=== PATIENT | male | born 1985 | race African-American/Black ===

== ENCOUNTER 2024-10-02 16:42 | Emergency (ER) | payer OTHER ==
[~2024-10-02] VITALS: Ht 175.3 cm; Wt 63.5 kg
[2024-10-02 16:55] VITALS: TEMP 98.5
[2024-10-02] MEDS ORDERED: PANTOPRAZOLE 40 MG VIAL ONE (17:30)
[2024-10-02] MEDS ORDERED: METOCLOPRAMIDE HCL 10 MG/2 ML VIAL ONE (17:30)
[2024-10-02] MEDS ORDERED: FAMOTIDINE/PF INJ 20 MG/2 ML VIAL IV ONE (17:31)
[2024-10-02] MEDS: IV NS 0.9% 1,000 ML BAG IV ONE ×2 (17:45→18:35)
[2024-10-02] MEDS: PANTOPRAZOLE 40 MG VIAL IV ONE (17:46)
[2024-10-02] MEDS: FAMOTIDINE/PF INJ 20 MG/2 ML VIAL IV ONE (17:47)
[2024-10-02] MEDS: METOCLOPRAMIDE HCL 10 MG/2 ML VIAL IV ONE (17:50)
[2024-10-02 17:54] LABS: BASOPHILS # (AUTO) 0.1 K/uL (0.0-0.2); BASOPHILS % (AUTO) 0.4 % (0.0-2.0); HEMATOCRIT 43 % (39-51); HEMOGLOBIN 14.8 g/dL (13.5-17.5); LYMPHOCYTES # (AUTO) 1.3 K/uL (0.8-4.8); LYMPHOCYTES % (AUTO) 6.3 % (20.0-44.0); MEAN CORPUSCULAR HEMOGLOBIN 31 PG (26.0-33.0); MEAN CORPUSCULAR HGB CONC 34 g/dl (31.0-36.0); MEAN CORPUSCULAR VOLUME 90 fL (80-96); MONOCYTES # (AUTO) 1.8 K/uL (0.1-1.30); MONOCYTES % (AUTO) 8.9 % (2.0-12.0); NEUTROPHILS # (AUTO) 17.6 K/uL (1.8-8.9); NEUTROPHILS % (AUTO) 84.4 % (43.0-81.0); PLATELET COUNT (AUTO) 312 K/uL (150-450); RED BLOOD CELL COUNT(AUTO) 4.77 MIL/uL (4.5-6.0); RED CELL DISTRIBUTION WIDTH 12.5 % (11.5-15.0); WHITE BLOOD COUNT (AUTO) 20.8 K/uL (4.3-11.0)
[2024-10-02 18:01] LABS: CALCIUM, SERUM 9.1 mg/dL (8.5-10.1); CREATININE 1.3 mg/dL (0.6-1.3); POTASSIUM 3.1 mmol/L (3.5-5.1)
[2024-10-02 18:07] LABS: ALBUMIN 4.6 g/dL (3.4-5.0); BILIRUBIN,DIRECT 0.2 mg/dL (0.0-0.2); BILIRUBIN,TOTAL 1.1 mg/dL (0.2-1.0)
[2024-10-02] MEDS ORDERED: ONDA4TAB5 PO (19:02)
[2024-10-02] MEDS ORDERED: AMOX-430 PO (19:02)
[2024-10-02] MEDS ORDERED: POTASSIUM CHLORIDE 20 MEQ TAB.PRT.SR PO ONE (19:09)
[2024-10-02] MEDS: POTASSIUM CHLORIDE 20 MEQ TAB.PRT.SR PO ONE (19:14)
[2024-10-02 19:40] VITALS: BP 110/75; O2SAT 98
== END 2024-10-02 19:37 | disposition home or self-care (01) ==
LOC: ER 16:46
DX: R11.2 Nausea with vomiting, unspecified (principal)
CPT/HCPCS: 99284; 96374; 96361; 96375; 85025; 80048; 83690; 80076; 36415; J1308; J2765; J7030; J2470